=== PATIENT | male | born 1975 | race Caucasian/White ===

== ENCOUNTER 2023-04-07 12:27 | Emergency (ER) | payer OTHER ==
[~2023-04-07] VITALS: Ht 182.9 cm; Wt 74.8 kg
[2023-04-07 12:29] VITALS: BP 136/90
[2023-04-07 12:51] LABS: BASOPHILS ABSOLUTE AUTO 0.02 K/mm3 (0.00-0.23); BASOPHILS PERCENT AUTO 0 % (0-2); EOSINOPHILS ABSOLUTE AUTO 0.02 K/mm3 (0.00-0.68); EOSINOPHILS PERCENT AUTO 0 % (0-6); Hematocrit 43.7 % (37.0-53.0); Hemoglobin 15.1 g/dL (13.5-17.5); IMMATURE GRAN ABSOLUTE AUTO 0.03 K/mm3 (0.00-0.10); IMMATURE GRAN PERCENT AUTO 0 % (0-1); LYMPHOCYTES ABSOLUTE AUTO 1.01 K/mm3 (0.84-5.20); LYMPHOCYTES PERCENT AUTO 13 % (21-46); MONOCYTES ABSOLUTE AUTO 0.56 K/mm3 (0.16-1.47); MONOCYTES PERCENT AUTO 7 % (4-13); Mean Corpuscular HGB 29.5 pg (26.0-34.0); Mean Corpuscular HGB Conc 34.6 g/dL (31.5-36.5); Mean Corpuscular Volume 86 fL (80-100); Mean Platelet Volume 11.1 fL (9.1-12.4); NEUTROPHILS ABSOLUTE AUTO 6.03 K/mm3 (1.96-9.15); NEUTROPHILS PERCENT AUTO 79 % (41-73); Platelet Count 275 K/mm3 (150-400); RDW Coefficient Variation 12.3 % (11.7-14.2); RDW Standard Deviation 38.4 fL (35.1-46.3); Red Blood Cell Count 5.11 M/mm3 (4.30-5.90); White Blood Cell Count 7.67 K/mm3 (4.00-11.30)
[2023-04-07 13:20] LABS: Albumin/Globulin Ratio 1.1 (0.8-1.8); Bilirubin, Total 0.9 mg/dL (0.1-1.0); Bun/Creatinine Ratio 31.8 (12.0-20.0); Calcium, Blood 9.1 mg/dL (8.5-10.1); Creatinine, Blood 0.88 mg/dL (0.60-1.20); Globulin, Blood 3.7 g/dL (2.2-4.0); Potassium, Blood 3.9 mmol/L (3.5-5.5); Total Protein, Blood 7.7 g/dL (6.4-8.2)
[2023-04-07] MEDS ORDERED: LOPE2C PO (15:42)
[2023-04-07] MEDS ORDERED: Omeprazole20 M1 PO (15:42)
[2023-04-07] MEDS ORDERED: KETOROLAC TROME10 M2 PO (15:47)
[2023-04-07] MEDS ORDERED: Methocarbamol750 MG PO (15:47)
[2023-04-07] MEDS ORDERED: METPRE4DP PO (15:47)
== END 2023-04-07 15:56 | disposition home or self-care (01) ==
LOC: ER 12:27
PROVIDERS: Physician Assistant
DX: R19.7 Diarrhea, unspecified (principal); Z88.5 Allergy status to narcotic agent; Z79.899 Other long term (current) drug therapy
CPT/HCPCS: 80053; 85025; 99284

== ENCOUNTER 2024-08-18 11:47 | Emergency (ER) | payer OTHER ==
[~2024-08-18] VITALS: Ht 182.9 cm; Wt 70.8 kg
[~2024-08-18 11:47] MED LIST: KETOROLAC TROME10 M2 PO; LOPE2C PO; METPRE4DP PO; Methocarbamol750 MG PO; Omeprazole20 M1 PO
[2024-08-18 13:09] LABS: BASOPHILS ABSOLUTE AUTO 0.02 K/mm3 (0.00-0.23); BASOPHILS PERCENT AUTO 0 % (0-2); EOSINOPHILS ABSOLUTE AUTO 0.03 K/mm3 (0.00-0.68); EOSINOPHILS PERCENT AUTO 0 % (0-6); Hemoglobin 14.8 g/dL (13.5-17.5); IMMATURE GRAN ABSOLUTE AUTO 0.04 K/mm3 (0.00-0.10); IMMATURE GRAN PERCENT AUTO 0 % (0-1); LYMPHOCYTES ABSOLUTE AUTO 1.45 K/mm3 (0.84-5.20); LYMPHOCYTES PERCENT AUTO 14 % (21-46); MONOCYTES ABSOLUTE AUTO 0.84 K/mm3 (0.16-1.47); MONOCYTES PERCENT AUTO 8 % (4-13); Mean Corpuscular HGB Conc 34.4 g/dL (31.5-36.5); Mean Corpuscular Volume 87 fL (80-100); Mean Platelet Volume 11.1 fL (9.1-12.4); NEUTROPHILS ABSOLUTE AUTO 8.35 K/mm3 (1.96-9.15); NEUTROPHILS PERCENT AUTO 78 % (41-73); Platelet Count 231 K/mm3 (150-400); RDW Standard Deviation 41.5 fL (35.1-46.3); Red Blood Cell Count 4.93 M/mm3 (4.30-5.90); White Blood Cell Count 10.73 K/mm3 (4.00-11.30)
[2024-08-18] MEDS ORDERED: Ondansetron HCl 2 MG / ML 2ML Vial IV ONE (13:40)
[2024-08-18] MEDS ORDERED: HYDROmorphone HCl/Pf 1MG SYR IV ONE (13:40)
[2024-08-18 13:59] LABS: Albumin/Globulin Ratio 1.1 (0.8-1.8); Bilirubin, Total 1.2 mg/dL (0.1-1.0); Bun/Creatinine Ratio 19.6 (12.0-20.0); Calcium, Blood 8.8 mg/dL (8.5-10.1); Creatinine, Blood 0.87 mg/dL (0.60-1.20); Globulin, Blood 3.8 g/dL (2.2-4.0); Total Protein, Blood 7.8 g/dL (6.4-8.2)
[2024-08-18] MEDS ORDERED: ONDA4ODT MM (14:24)
[2024-08-18] MEDS ORDERED: OXAYDO5 M1 PO (14:24)
[2024-08-18 14:30] VITALS: BP 132/75
== END 2024-08-18 14:37 | disposition home or self-care (01) ==
LOC: ER 11:47
PROVIDERS: Student in an Organized Health Care Education/Training Program
DX: S42.022A Displaced fracture of shaft of left clavicle, initial encounter for closed fracture (principal); G89.11 Acute pain due to trauma; X58.XXXA Exposure to other specified factors, initial encounter; Z88.5 Allergy status to narcotic agent; Z79.899 Other long term (current) drug therapy
CPT/HCPCS: 73030; 80053; 85025; 96374; 96375; 99283-25; J1171; J2405

== ENCOUNTER 2024-08-19 11:54 | Emergency (ER) | payer OTHER ==
[~2024-08-19] VITALS: Ht 182.9 cm; Wt 70.3 kg
[~2024-08-19 11:54] MED LIST changes: +ONDA4ODT MM; +OXAYDO5 M1 PO
[2024-08-19 12:04] VITALS: BP 137/91
== END 2024-08-19 13:20 | disposition home or self-care (01) ==
LOC: ER 11:54
DX: S42.002A Fracture of unspecified part of left clavicle, initial encounter for closed fracture (principal); X58.XXXA Exposure to other specified factors, initial encounter; Z79.899 Other long term (current) drug therapy; Z88.5 Allergy status to narcotic agent
CPT/HCPCS: 99282

== ENCOUNTER 2024-08-25 06:43 | Day surgery (SDC) | payer OTHER ==
[~2024-08-25] VITALS: Ht 180.3 cm; Wt 74.2 kg
[~2024-08-25 06:43] MED LIST changes: +Lactated Ringer's 1,000 ML IV ONE; +Lidocaine HCl 4% 5 ML SDA ONE; +propofoL 100 ML IV ONE
[2024-08-25] MEDS ORDERED: CeFAZolin Sodium 2,000 MG VIAL ONE (07:02)
[2024-08-25] MEDS ORDERED: Lidocaine HCl 2% 10 ML SDA ONE (07:07)
[2024-08-25] MEDS ORDERED: Ropivacaine 0.5% HCL/PF 5 MG/ML 30ML Vial ONE (07:12)
[2024-08-25] MEDS ORDERED: propofoL 100 ML IV ONE (07:14)
[2024-08-25] MEDS ORDERED: HYDROCODONE-AC1 EAC7 PO (07:20)
[2024-08-25] MEDS ORDERED: Lactated Ringer's 1,000 ML IV ONE (07:25)
[2024-08-25] MEDS ORDERED: Dexamethasone Sod Phos 10 MG/ML 1ML VIAL ONE (07:58)
[2024-08-25] MEDS ORDERED: HYDROmorphone HCl/Pf 1MG SYR ONE ×3 (07:58→12:21)
[2024-08-25] MEDS ORDERED: Ketorolac Tromethamine 30mg Vial ONE (07:58)
[2024-08-25] MEDS ORDERED: Ondansetron HCl 2 MG / ML 2ML Vial ONE (07:58)
[2024-08-25] MEDS ORDERED: Ketamine HCl 100 MG / ML 5ML Vial ONE (07:59)
[2024-08-25] MEDS ORDERED: Acetaminophen 500 MG Tab ONE (08:34)
[2024-08-25] MEDS ORDERED: Bupivacaine 0.5% W/EPI 1:200000 SDV 30 ML Vial ONE (09:06)
[2024-08-25] MEDS ORDERED: Glycopyrrolate 0.2 MG/ML 5ML VIAL ONE (10:02)
--- NOTE | 2024-08-25 11:47 | NUR ---
08/25/[address] REVIEWED HEART RHYTHM (SEE STRIP).
--- NOTE | 2024-08-25 12:08 | NUR ---
08/25/24 1208 Ashley Soria PT YELLING OUT & CURSING IN PAIN. PT NOT COOPERATING W/ PACU STAFF. PT GIVEN DOSE OF IV PAIN MED PER ANS ORDER, SEE MAR. PT STARTS TO SETTLE DOWN W/ PERIODS OF LONGER REST W/ EYES CLOSED. PT OCCASIONALLY OPENS EYES AND YELLS OUT, CUSSING IN PAIN. INFORMED PT THAT I CAN ONLY GIVE IV PAIN MEDICINE ORDERED. ENCOURAGING PT TO DEEP BREATHE & RELAX BEST POSSIBLE. XRAY TAKEN AT BEDSIDE. VSS, ON RA.
[2024-08-25 12:56] VITALS: BP 131/86
== END 2024-08-25 13:55 | disposition home or self-care (01) ==
LOC: ORSCSDS 06:43
PROVIDERS: Orthopaedic Surgery
PROC: 0PSB04Z Reposition Left Clavicle with Internal Fixation Device, Open Approach (ICD-10-PCS; principal; 2024-08-25 08:15)
DX: S42.022A Displaced fracture of shaft of left clavicle, initial encounter for closed fracture (principal); F17.220 Nicotine dependence, chewing tobacco, uncomplicated; F17.210 Nicotine dependence, cigarettes, uncomplicated; W17.89XA Other fall from one level to another, initial encounter; Z79.899 Other long term (current) drug therapy
CPT/HCPCS: 73000; 84132; A9270; C1713; J0690; J1100; J1171; J1885; J2003; J2405; J2704; J2795; J7120